=== PATIENT | male | born 1945 | race Caucasian/White ===

== ENCOUNTER 2022-10-25 09:17 | Emergency (ER) | payer MEDICARE ==
[~2022-10-25] VITALS: Ht 165.1 cm; Wt 90.7 kg
[2022-10-25 09:17] VITALS: BP_SYST 182
--- NOTE | 2022-10-25 09:29 | NUR ---
ER at bedside examining patient.
--- NOTE | 2022-10-25 09:30 | NUR ---
Pt BIBA C/O HTN at home BP 182/89 upon arrival AOX4 Able to make needs known Will continue to monitor
[2022-10-25] MEDS ORDERED: cloNIDine HCL 0.1 MG TABLET PO ONE (09:45)
[2022-10-25] MEDS ORDERED: LORazepam 2 MG/ML VIAL IVP ONE (09:45)
[2022-10-25 10:28] LABS: BASOPHILS % (AUTO) 0.6 % (0.0-2.0); EOSINOPHILS # (AUTO) 0.5 K/uL (0.0-0.4); EOSINOPHILS % (AUTO) 12.9 % (0.0-4.0); HEMATOCRIT 42.2 % (36-54); LYMPHOCYTES % (AUTO) 25.2 % (20.5-51.5); MEAN CORPUSCULAR HEMOGLOBIN 31 pg (27-31); MEAN CORPUSCULAR HGB CONC 33 % (32-36); MEAN CORPUSCULAR VOLUME 92 fL (79.0-98.0); MONOCYTES # (AUTO) 0.4 K/uL (0.0-1.0); MONOCYTES % (AUTO) 10.9 % (1.7-9.3); NEUTROPHILS # (AUTO) 1.9 K/uL (1.8-7.7); NEUTROPHILS % (AUTO) 50.4 % (40.0-70.0); PLATELET COUNT (AUTO) 159 K/uL (130-430); RED BLOOD CELL COUNT(AUTO) 4.59 MIL/uL (4.2-6.2); RED CELL DISTRIBUTION WIDTH 14.9 % (9.0-15.0); WHITE BLOOD COUNT (AUTO) 3.8 K/uL (4.8-10.8)
[2022-10-25 10:43] LABS: ALANINE AMINOTRANSFERASE 19 U/L (12-78); ALBUMIN 3.8 g/dL (3.4-4.8); ANION GAP 3 (5-15); ASPARTATE AMINOTRANSFERASE < 5 U/L (10-37); CALCIUM 8.9 mg/dL (8.4-11.0); CHLORIDE 105 mmol/L (98-107); CREATININE 0.91 mg/dL (0.55-1.30); GLUCOSE 115 mg/dL (70-99); UREA NITROGEN, BLOOD 11 mg/dL (8-21)
--- NOTE | 2022-10-25 11:14 | NUR ---
Pt resting comfortably in bed NAD at this time AOX4 VSS Able to make needs known Will continue to monitor
[2022-10-25 11:15] VITALS: BP_SYST 155
[2022-10-25] MEDS ORDERED: LORA-258 PO (11:28)
[2022-10-25] MEDS ORDERED: LISI40TA13 PO (11:33)
--- NOTE | 2022-10-25 12:02 | NUR ---
Patient given written and verbal discharge instructions and verbalizes understanding. ER MD discussed with patient the results and treatment provided. Patient in stable condition. ID arm band removed. IV catheter removed intact and dressing applied, no active bleeding. Rx of ativan and lisinopril given. Patient educated on pain management and to follow up with PMD. Pain Scale 0. Opportunity for questions provided and answered. Medication side effect fact sheet provided.
== END 2022-10-25 12:02 | disposition home or self-care (01) ==
LOC: SED 09:17
DX: I16.0 Hypertensive urgency (principal); F41.9 Anxiety disorder, unspecified; I10 Essential (primary) hypertension; R51.9 Headache, unspecified; R42 Dizziness and giddiness; Z79.899 Other long term (current) drug therapy
CPT/HCPCS: 99285; 96374; 70450; 71045; 80053; 85025; 84484; 36415; 93005; 76376; J2060